=== PATIENT | male | born 1980 | race African-American/Black ===

== ENCOUNTER 2018-04-23 20:20 | Emergency (ER) | payer SELFPAY ==
[~2018-04-23] VITALS: Ht 167.6 cm; Wt 87.0 kg
[2018-04-23] MEDS ORDERED: LOSARTAN POTASSIUM 100 MG TABLET PO ONE (21:45)
[2018-04-23 22:00] LABS: CLARITY URINE CLEAR (CLEAR); COLOR URINE YELLOW (YELLOW); KETONES URINE TRACE (NEGATIVE); LEUKOCYTE ESTERASE URINE NEGATIVE (NEGATIVE); NITRITE URINE NEGATIVE (NEGATIVE); OCCULT BLOOD URINE NEGATIVE (NEGATIVE); PH URINE 5.5 (4.5-8.0); PROTEIN URINE 3+ (NEGATIVE); SPECIFIC GRAVITY URINE 1.026 (1.005-1.030)
[2018-04-23 22:10] LABS: BASOPHILS % 0.9 % (0.0-2.0); EOSINOPHILS % 1.8 % (0.0-5.0); HEMATOCRIT. 46.2 % (42.0-52.0); LYMPHOCYTES % 27.7 % (20.0-50.0); MEAN CORPUSCULAR HEMOGLOBIN 24.1 pg (28.0-32.0); MEAN CORPUSCULAR VOLUME 74.4 fL (80.0-94.0); MEAN PLATELET VOLUME 10.5 fl (7.4-10.4); NEUTROPHILS % 64.6 % (40.0-76.0); PLATELET 167 x1000/uL (130-400); RED BLOOD CELL COUNT 6.21 mill/uL (4.7-6.1); RED CELL DISTRIBUTION WIDTH 15.3 % (11.6-14.6)
[2018-04-23 22:15] LABS: CHLORIDE 102 mEq/L (98-107)
[2018-04-24 00:02] VITALS: BP 158/98
== END 2018-04-24 00:03 | disposition home or self-care (01) ==
LOC: ER 20:20
DX: I10 Essential (primary) hypertension (principal); E11.65 Type 2 diabetes mellitus with hyperglycemia; Z88.0 Allergy status to penicillin; Z87.891 Personal history of nicotine dependence
CPT/HCPCS: 36415; 80048; 82962; 99283

== ENCOUNTER 2019-03-22 15:46 | Inpatient (IN) | payer MEDICAID ==
[~2019-03-22] VITALS: Ht 167.6 cm; Wt 85.7 kg
[2019-03-22] MEDS ORDERED: ASPIRIN 325MG EC TABLET PO ONE (16:45)
[2019-03-22] MEDS ORDERED: NITROGLYCERIN 0.4MG TABLET SL SL PRN (16:45)
[2019-03-22 17:10] LABS: CHLORIDE 96 mEq/L (98-107)
[2019-03-22 17:13] LABS: BASOPHILS % 0.6 % (0.0-2.0); EOSINOPHILS % 1.5 % (0.0-5.0); HEMATOCRIT. 46.4 % (42.0-52.0); HEMOGLOBIN. 15.1 g/dL (14.0-18.0); LYMPHOCYTES % 23.6 % (20.0-50.0); MEAN CORPUSCULAR HEMOGLOBIN 24.1 pg (28.0-32.0); MEAN PLATELET VOLUME 11.2 fl (7.4-10.4); MONOCYTES % 6.1 % (2.0-8.0); NEUTROPHILS % 68.2 % (40.0-76.0); PLATELET 143 x1000/uL (130-400); RED BLOOD CELL COUNT 6.27 mill/uL (4.7-6.1); RED CELL DISTRIBUTION WIDTH 15.1 % (11.6-14.6)
[2019-03-22] MEDS ORDERED: METOPROLOL TARTRATE 5MG/5ML VIAL IV ONE (17:15)
[2019-03-22] MEDS ORDERED: NITROGLYCERIN OINT 1GM/INCH UDPKT TD ONE (17:15)
[2019-03-22] MEDS ORDERED: DEXTROSE 50% WATER 50ML SYRINGE IV PRN ×3 (17:30→18:45)
[2019-03-22] MEDS: SODIUM CHLORIDE 0.45% 1,000 ML IV SCH ×2 (17:30→23:04)
[2019-03-22 17:57] LABS: *BARBITURATES SCREEN URINE NEGATIVE (NEGATIVE)
[2019-03-22 17:58] LABS: *AMPHETAMINES SCREEN URINE NEGATIVE (NEGATIVE); *BENZODIAZEPINES SCREEN URINE NEGATIVE (NEGATIVE); *COCAINE SCREEN URINE NEGATIVE (NEGATIVE); CANNABINOID URINE SCREEN NEGATIVE (NEGATIVE); METHADONE URINE SCREEN NEGATIVE (NEGATIVE); OPIATES URINE SCREEN NEGATIVE (NEGATIVE); PHENCYCLIDINE URINE SCREEN NEGATIVE (NEGATIVE)
[2019-03-22] MEDS ORDERED: ONDANSETRON HCL 4MG/2ML INJ IV PRN (18:00)
[2019-03-22] MEDS ORDERED: ACETAMINOPHEN 325MG TABLET PO PRN (18:00)
[2019-03-22] MEDS ORDERED: ENOXAPARIN 80MG/0.8ML SYR SUBCUT NR (18:00)
[2019-03-22] MEDS ORDERED: MORPHINE SULFATE 4 MG/ML CPJ (NOT FOR IM USE) IV PRN (18:00)
[2019-03-22] MEDS ORDERED: INSULIN LISPRO 100 UNITS/ML SUBCUT SCH (18:20)
[2019-03-22] MEDS ORDERED: INSULIN REGULAR (HUMULIN R) 300UNITS/3ML SUBCUT ONE (19:00)
[2019-03-22 20:50] VITALS: BP 144/81
[2019-03-22 20:55] VITALS: BP 144/81
[2019-03-22] MEDS ORDERED: BLOOD SUGAR DIAGNOSTIC STRIP TEST SCH ×2 (21:00)
[2019-03-22] MEDS ORDERED: ATORVASTATIN CALCIUM 40MG TABLET PO SCH (21:01)
[2019-03-22] MEDS: LOSARTAN POTASSIUM 25 MG TABLET PO SCH (21:35)
[2019-03-22] MEDS: INSULIN LISPRO 100 UNITS/ML SUBCUT SCH (21:35)
[2019-03-22] MEDS: METOPROLOL TARTRATE 25MG TABLET PO SCH (21:36)
[2019-03-22] MEDS: BLOOD SUGAR DIAGNOSTIC STRIP TEST SCH (21:39)
[2019-03-22 22:00] VITALS: BP 141/95
[2019-03-22 23:53] LABS: CREATINE KINASE MB FRACTION < 1.0 ng/mL (0.5-3.6)
[2019-03-23] VITALS (9 sets, daily range): BP systolic 128–153; BP diastolic 43–83
[2019-03-23] MEDS: BLOOD SUGAR DIAGNOSTIC STRIP TEST SCH ×2 (06:50→12:08)
[2019-03-23] MEDS: INSULIN LISPRO 100 UNITS/ML SUBCUT SCH ×2 (07:20→12:46)
[2019-03-23] MEDS ORDERED: PNEUMOCOCCAL 23-VAL P-SAC VAC 0.5 ML IM ONE (08:00)
[2019-03-23 09:22] LABS: CHLORIDE 102 mEq/L (98-107)
[2019-03-23] MEDS: LOSARTAN POTASSIUM 25 MG TABLET PO SCH (09:39)
[2019-03-23 09:41] LABS: HDL CHOLESTEROL 35 mg/dL (40-59); LDL CHOLESTEROL 75 mg/dL (5-100)
[2019-03-23 09:42] LABS: CREATINE KINASE MB FRACTION < 1.0 ng/mL (0.5-3.6)
[2019-03-23] MEDS ORDERED: INFLUENZA VIRUS VACCINE(AFLURIA) 0.5ML SYR IM ONE (10:00)
[2019-03-23] MEDS ORDERED: LIDOCAINE HCL 1% 20ML VIAL (Pyxis) INJ ONE (10:10)
[2019-03-23] MEDS ORDERED: ASPIRIN/SOD BICARB/CITRIC ACID 324MG TAB EFF ONE (10:10)
[2019-03-23 10:11] LABS: BASOPHILS % 0.6 % (0.0-2.0); EOSINOPHILS % 1.5 % (0.0-5.0); HEMATOCRIT. 45.4 % (42.0-52.0); HEMOGLOBIN. 14.5 g/dL (14.0-18.0); LYMPHOCYTES % 27.4 % (20.0-50.0); MEAN CORPUSCULAR HEMOGLOBIN 23.8 pg (28.0-32.0); MEAN CORPUSCULAR VOLUME 74.7 fL (80.0-94.0); MEAN PLATELET VOLUME 11.5 fl (7.4-10.4); MONOCYTES % 6.9 % (2.0-8.0); NEUTROPHILS % 63.6 % (40.0-76.0); PLATELET 137 x1000/uL (130-400); RED BLOOD CELL COUNT 6.07 mill/uL (4.7-6.1); RED CELL DISTRIBUTION WIDTH 14.8 % (11.6-14.6)
[2019-03-23] MEDS ORDERED: IODIXANOL 320MG/ML 100 ML BOTTLE IV ONE (10:11)
[2019-03-23] MEDS ORDERED: MIDAZOLAM HCL 2 MG/2 ML VIAL ONE (10:14)
[2019-03-23] MEDS ORDERED: FENTANYL CITRATE/PF 50MCG/ML 2ML VIAL ONE (10:15)
[2019-03-23] MEDS: METOPROLOL TARTRATE 25MG TABLET PO SCH (11:00)
[2019-03-23] MEDS ORDERED: MORPHINE SULFATE 2 MG/ML CPJ (NOT FOR IM USE) IV PRN (11:15)
[2019-03-23] MEDS ORDERED: ONDANSETRON HCL 4MG/2ML INJ IV PRN (11:15)
[2019-03-23] MEDS ORDERED: ATROPINE SULFATE 1MG/10ML SYR IV PRN (11:15)
[2019-03-23] MEDS ORDERED: ACETAMINOPHEN 325MG TABLET PO PRN (11:15)
[2019-03-23] MEDS ORDERED: SODIUM CHLORIDE 0.45% 1,000 ML IV ONE (11:50)
[2019-03-23] MEDS: SODIUM CHLORIDE 0.45% 1,000 ML IV SCH (12:27)
[2019-03-23] MEDS ORDERED: DEXTROSE 50% WATER 50ML SYRINGE IV PRN (13:45)
[2019-03-23] MEDS ORDERED: INSLIS SUBCUT (15:47)
[2019-03-23] MEDS ORDERED: LOSA25TA3 PO (15:47)
[2019-03-23] MEDS ORDERED: ASPI-1393 PO (15:47)
[2019-03-23] MEDS ORDERED: LIP40 PO (15:47)
[2019-03-23] MEDS ORDERED: LINA5TAB PO (15:47)
[2019-03-23] MEDS ORDERED: LANTUSUD SUBCUT (15:47)
[2019-03-23] MEDS ORDERED: METO25TA6 PO (15:47)
[2019-03-23] MEDS ORDERED: MAGNESIUM OXIDE 400MG TABLET PO SCH (16:00)
[2019-03-23] MEDS ORDERED: MAGNESIUM 1 G PREMIX 100 ML IV SCH (16:00)
[2019-03-23] MEDS ORDERED: BLOOD SUGAR DIAGNOSTIC STRIP TEST SCH (16:50)
[2019-03-23] MEDS ORDERED: INSULIN LISPRO 100 UNITS/ML SUBCUT SCH (17:20)
[2019-03-23] MEDS ORDERED: LOSARTAN POTASSIUM 25 MG TABLET PO SCH (21:00)
[2019-03-23] MEDS ORDERED: INSULIN GLARGINE UD 100 UNITS/ML SYR SUBCUT SCH (22:00)
[2019-03-24] MEDS ORDERED: LINAGLIPTIN 5MG TABLET PO SCH (09:00)
== END 2019-03-23 16:40 | disposition home or self-care (01) | DRG 190 ==
LOC: ER 15:46 → EDBEDREQ 18:28 → EDBEDREQSVC 18:28 → ENRESERV 19:44 → 3WST 20:55
PROVIDERS: ADMIT Family Medicine Adult Medicine; ATTEND Family Medicine Adult Medicine
PROC: 4A023N7 Measurement of Cardiac Sampling and Pressure, Left Heart, Percutaneous Approach (ICD-10-PCS; principal; 2019-03-23)
PROC: B2151ZZ Fluoroscopy of Left Heart using Low Osmolar Contrast (ICD-10-PCS; 2019-03-23)
PROC: B2111ZZ Fluoroscopy of Multiple Coronary Arteries using Low Osmolar Contrast (ICD-10-PCS; 2019-03-23)
DX: I21.3 ST elevation (STEMI) myocardial infarction of unspecified site (principal); E87.1 Hypo-osmolality and hyponatremia; E11.9 Type 2 diabetes mellitus without complications; E78.5 Hyperlipidemia, unspecified; I10 Essential (primary) hypertension; Z91.19 Patient's noncompliance with other medical treatment and regimen; Z82.49 Family history of ischemic heart disease and other diseases of the circulatory system; Z82.3 Family history of stroke; Z83.3 Family history of diabetes mellitus; F17.210 Nicotine dependence, cigarettes, uncomplicated
CPT/HCPCS: 36415; 71045; 80061; 80305; 82553; 82962; 83036; 83735; 83880; 84484; 90686; 90732; 93005; 93306; 93458; 96374; 99291; C1769; C1887; C1893; J1644; J1650; J1815; J2250; J3010; J3475; J3490; Q9967